=== PATIENT | male | born 1975 | race Caucasian/White ===

== ENCOUNTER 2016-11-27 10:00 | Emergency (ER) | payer OTHER ==
[2016-11-27 09:41] LABS: BASO % 0.2 % (0-2); EOS % 1.9 % (0-7); EOSINOPHIL ABSOLUTE COUNT 0.2 tho/cmm (0.0-0.7); HCT-HEMATOCRIT 40.9 % (36.0-53.5); HGB-HEMOGLOBIN 13.9 gm/dl (13.5-17.0); IMMATURE GRANULOCYTES ABSOLUTE 0.03 tho/cmm (0-0.03); IMMATURE GRANULOCYTES PERCENT 0.3 % (0-0.3); LYMPH % 21.5 % (20-45); LYMPH ABSOLUTE COUNT 2.3 tho/cmm (0.8-4.5); MCV (MEAN CELL VOLUME) 82.3 fl (82.0-96.0); MEAN PLATELET VOLUME 9.7 cmc (9.4-12.4); MONO % 12.9 % (0-12); MONOCYTE ABSOLUTE COUNT 1.4 tho/cmm (0.0-1.2); NEUTROPHIL ABSOLUTE COUNT 6.7 tho/cmm (1.6-8.0); NEUTROPHIL-AUTOMATED 6.7 tho/cmm (1.6-8.0); NEUTROPHILS % 63.2 % (40-80); PLATELET COUNT 304 tho/cmm (150-450); RED BLOOD COUNT 4.97 mil/cmm (4.40-5.70); RED CELL DISTRIBUTION WIDTH 13.1 % (12.4-16.4); WHITE BLOOD COUNT 10.6 tho/cmm (4.0-10.0)
[~2016-11-27 10:00] MED LIST: NO HOME MEDICATION XX
[2016-11-27 10:07] LABS: ALBUMIN 3.8 g/dl (3.5-5.0); ALKALINE PHOSPHATASE 86 U/L (33-138); ALT/SGPT 18 U/L (12-78); ANION GAP 13 mmol/L (0-20); AST/SGOT 18 U/L (10-40); BILIRUBIN,TOTAL 0.7 mg/dl (0.0-1.5); BLOOD UREA NITROGEN 17 mg/dl (6-24); CALCIUM 8.8 mg/dl (8.5-10.5); CARBON DIOXIDE-VENOUS 23 mmol/L (22-32); CHLORIDE 108 mmol/l (96-110); CREATININE 1.31 mg/dl (0.60-1.30); GLUCOSE 126 mg/dL (70-110); POTASSIUM 4.2 mmol/L (3.7-5.1); SODIUM 140 mmol/L (135-145); eGFR VALUE FOR BLACK 77 mL/Min
[2016-11-27 11:14] LABS: URINE BILIRUBIN SMALL (NEG); URINE BLOOD NEGATIVE (NEG); URINE GLUCOSE (UA) NEGATIVE (NEG); URINE KETONE SMALL (NEG); URINE LEUKOCYTE ESTERASE POSITIVE (NEG); URINE NITRITE NEGATIVE (NEG); URINE PH 6.5 (5.0-8.0); URINE PROTEIN MODERATE (NEG); URINE SPECIFIC GRAVITY 1.015 (1.003-1.030)
[2016-11-27 11:20] LABS: URINE APPEARANCE CLEAR; URINE COLOR DARK YELLOW
[2016-11-27 11:22] LABS: URINE AMORPHOUS 1+
[2016-11-27 11:23] LABS: URINE BACTERIA 1+; URINE MUCUS 1+; URINE RBC RARE /[HPF] (0-5); URINE WBC 0-2 /[HPF] (0-5)
[2016-11-27] MEDS ORDERED: ZOFRAN ODT4 MG PO (11:58)
[2016-11-27] MEDS ORDERED: NORCO 5-325 TA1 EACH PO (11:58)
[2016-11-27] MEDS ORDERED: FLOMAX0.4 M1 PO (11:58)
[2016-11-27] MEDS ORDERED: CIPRO500 M2 PO (11:58)
== END 2016-11-27 12:14 ==
LOC: EDMED 10:00
PROVIDERS: Emergency Medicine
DX: N20.0 Calculus of kidney (principal); R91.1 Solitary pulmonary nodule; Z85.47 Personal history of malignant neoplasm of testis
CPT/HCPCS: J1170; J1885; J2405; J7030